=== PATIENT | male | born 1940 | race Caucasian/White ===

== ENCOUNTER 2023-12-27 11:13 | Emergency (ER) | payer MEDICARE, SELFPAY ==
[2023-12-27 11:15] VITALS: BP 127/65
[2023-12-27 12:11] VITALS: BP 124/69; BMI 23.3
--- NOTE | 2023-12-27 12:35 | ED.GENMED ---
History of Present Illness
<Jordana Oseguera PA-C - Last Filed: 12/29/23 14:38>
General
Chief Complaint: Back Pain
Source: patient
Exam Limitations: none
Time Seen by Provider: 12/27/23 12:04
Nursing documentation reviewed up to this point in time: agreed with
History of Present Illness
History of Present Illness:
Patient is an 83-year-old male presenting to the emergency department for evaluation of right hip pain. Patient states pain initially started on Sunday while he was moving large boxes as he does work in the [employer] industry. He states pain is
persistent over the past few days he came to the emergency department for evaluation. He describes the pain in his right hip with some radiation down his right leg. He did notice some weakness in his right leg. Today he felt slightly 'woozy 'and
became concerned. He is ambulating independently with some pain. Patient denies any chest pain, shortness of breath, bowel/bladder incontinence, saddle paresthesias, numbness in the legs. Patient denies any fever or chills.
Patient does follow with [facility].
Review of Systems
<Jordana Oseguera PA-C - Last Filed: 12/29/23 14:38>
Review of Systems
Allergies reviewed?: Yes
All Other Systems: ROS reviewed and negative except as documented in HPI and ROS
Phy Exam
<Jordana Oseguera PA-C - Last Filed: 12/29/23 14:38>
Physical Exam
Physical Exam:
Vitals: Mildly bradycardic, otherwise vital signs stable. Afebrile
General: Patient is well appearing, no acute distress. Nontoxic appearing
Skin: Warm and dry, no rashes or lesions
Head: Normocephalic, atraumatic
Eyes: Sclera nonicteric. EOMs intact. No nystagmus.
Throat: Protecting airway
Neck: Normal ROM, no cervical spine tenderness, no meningismus. Trachea midline
Cardiac: Regular rate and rhythm, no murmurs.
Pulm: Normal respiratory effort, no wheezes, rales, rhonchi heard on exam.
Abdomen: Abdomen soft. No abdominal tenderness.
Back: No midline spinal tenderness.
Extremities: Mild reproducible tenderness along right posterior iliac crest. Right lower extremity atraumatic and nontender with full range of motion without pain. No pain with right hip internal/external rotation. Great distal pulses of
bilateral lower extremities. Negative straight leg raise
Neuro: AAOx3. CN II-XII intact. No focal neurologic deficits. Strength 5/5 in bilateral upper and lower extremities. Sensation fully intact.
Psychiatric: Normal affect.
Course
<Jordana Oseguera PA-C - Last Filed: 12/29/23 14:38>
Orders/Labs/Results
Orders:
Orders
12/27/23 12:26
CR Hip - RT w/wo Pel 2-3 Vw* Urgent
Comment:
Reason For Exam: pain
Include a pelvis x-ray?: Yes
12/27/23 12:36
Lidocaine [Lidocaine 4% Patch] 1 patch TOPICAL NOW STA
Apply Lidocaine patch(s) to:: Right lower back
12/27/23 13:08
Electrocardiogram (*1) Urgent
Reason for Study: Vertigo / Dizzy
EKG- Treatment ONCE
12/27/23 13:31
Basic Metabolic Panel Urgent
Complete Blood Count/With Diff Urgent
Abnormal Lab Results
12/27/23
13:31
MPV 11.0 H fL
(7.4-10.4)
Lymphocytes % 19.2 L %
(20.5-51.1)
BUN 21 H mg/dl
(9-20)
12/27/23 13:31
12/27/23 13:31
Vital Signs
Initial and Last Documented VS:
Initial Vital Signs
Temp Pulse Resp BP Pulse Ox
97.5 F 57 22 127/65 99
12/27/23 11:15 12/27/23 11:15 12/27/23 11:15 12/27/23 11:15 12/27/23 11:15
Last Documented Vital Signs
Temp Pulse Resp BP Pulse Ox
97.5 F 57 18 117/65 98
12/27/23 11:15 12/27/23 17:06 12/27/23 17:06 12/27/23 17:06 12/27/23 17:06
<Killian Kenney MD - Last Filed: 12/27/23 13:09>
Orders/Labs/Results
Orders:
Orders
12/27/23 12:26
CR Hip - RT w/wo Pel 2-3 Vw* Urgent
Comment:
Reason For Exam: pain
Include a pelvis x-ray?: Yes
12/27/23 12:36
Lidocaine [Lidocaine 4% Patch] 1 patch TOPICAL NOW STA
Apply Lidocaine patch(s) to:: Right lower back
12/27/23 13:08
Electrocardiogram (*1) Urgent
Reason for Study: Vertigo / Dizzy
EKG- Treatment ONCE
12/27/23 13:31
Basic Metabolic Panel Urgent
Complete Blood Count/With Diff Urgent
Abnormal Lab Results
12/27/23
13:31
MPV 11.0 H fL
(7.4-10.4)
Lymphocytes % 19.2 L %
(20.5-51.1)
BUN 21 H mg/dl
(9-20)
12/27/23 13:31
12/27/23 13:31
Vital Signs
Initial and Last Documented VS:
Initial Vital Signs
Temp Pulse Resp BP Pulse Ox
97.5 F 57 22 127/65 99
12/27/23 11:15 12/27/23 11:15 12/27/23 11:15 12/27/23 11:15 12/27/23 11:15
Last Documented Vital Signs
Temp Pulse Resp BP Pulse Ox
97.5 F 57 18 117/65 98
12/27/23 11:15 12/27/23 17:06 12/27/23 17:06 12/27/23 17:06 12/27/23 17:06
<Jordana Oseguera PA-C - Last Filed: 12/29/23 14:38>
MDM/Problems Addressed
Differential Diagnosis Includes:
Not limited to: Muscle strain, sciatica, IT band syndrome, hip fracture, zoster
MDM/Problems Addressed:
83-year-old male with history as documented presenting with right hip/lower back discomfort following lifting heavy object at work. Pain persistent throughout this week. Patient with mild weakness in right leg and felt 'woozy' today prompting
visit to emergency department. No fevers, chills, numbness/tingling, saddle anesthesia, bowel/bladder incontinence. No urinary symptoms. Patient's vital signs are stable. Physical exam as above. Mild reproducible tenderness along right lateral
hip. No bony tenderness or overlying erythema, edema, or rash. Full range of motion in all joints of right lower extremity without pain. Negative straight leg raise. No focal neurologic deficits on exam. He has excellent strength in bilateral
upper and lower extremities. Patient perfusing well. Great distal pulses. Symptoms seem most consistent with musculoskeletal origin although given patient's 'woozy ' feeling will obtain basic labs, EKG. Will obtain CT abdomen/pelvis to ensure no
intra-abdominal pathology or obstructive uropathy.
Did apply lidocaine patch to patient's lower back/right hip. He reports significant improvement in discomfort following lidocaine patch. He is ambulating around room without any difficulty. States that he 'feels much better '. Labs were obtained
which show no significant abnormalities. EKG shows sinus rhythm with signs of LVH and a left bundle branch block. Did contact patient's sports media who he sees at [facility] to obtain prior EKG for comparison purposes. EKG remains relatively
unchanged. Patient has been waiting for CT scan for a while at this point. He is requesting discharge. Did discuss with patient purpose of CT to evaluate for other intra-abdominal/renal etiology of pain. Despite recommendation�patient be
discharged prior to CT scan given that he is feeling 'so much better 'after lidocaine patch. Patient aware of risks associated with not proceeding with CT and possibly missing more emergent diagnosis.
Patient will be discharged with close return precautions. He is following up with his primary care provider later this week. He will use lidocaine patches, Tylenol at home. Patient ambulated without any difficulty out of triage.
Chronic conditions affecting care:
Hyperlipidemia
Acute Exacerbation and/or Progression of Chronic Illness:
N/A
<Jordana Oseguera PA-C - Last Filed: 12/29/23 14:38>
*Radiology
Radiology exam reviewed: preliminary read by ED provider (No fracture or dislocation) and radiology read reviewed
*Pulse Oximetry
Patient hypoxic: no
*EKG
Interpreted by ED Provider?: Yes
EKG Intrepretation Date: 12/27/23
Interpretation: abnormal
Comparison EKG: no comparison EKG present
Heart Rate: 50
Rate: bradycardiac
Rhythm: sinus
Randle: normal axis
Interval: first degree heart block
QRS Pattern: left vent hypertrophy
Ischemia: non-specific ST changes
*Hat Finisher Interpretation
Rate: Hat Finisher- N/A
*Critical Care Note
Total Time (30-74mins, 75-104mins- exclusive of procedures): Not Applicable
ED Attending Note
<Jordana Oseguera PA-C - Last Filed: 12/29/23 14:38>
-
Portions of this chart may have been created with voice recognition software.� Occasional wrong word or��sound alike� substitutions may have occurred due to the inherent limitations of voice recognition software.
<Killian Kenney MD - Last Filed: 12/27/23 13:09>
ED Attending Note
Patient seen and examined by attending physician: Yes
I performed the substantive portion of visit, reviewed & personally made and approve the management plan that is documented in note by myself or LEXI.: Yes
ED Attending Note:
Patient complaining of days of discomfort pointing to the right flank across the iliac crest. No shearing pain no general abdominal pain some shooting pain down the leg. Complains of some weakness in the leg. No fever chills urinary symptoms etc.
On exam patient is nontoxic in no distress. Warm and dry. Perfusing well. Good distal pulses and color. No pain with straight leg raising. Good lower extremity strength. Good plantar dorsiflexion at the foot. Able to ambulate without any
apparent discomfort. No CVA tenderness. No rash. Most suspicious of a musculoskeletal issue along his iliac crest however with this woozy feeling he is having an vague lateral abdominal discomfort we will get labs CT scan and EKG.
Discharge Plan
Departure
Patient Disposition: Home (Routine Discharge)
Date of Disposition: 12/27/23
Time of Disposition: 16:54
Patient with high blood pressure during this ER visit?: No
Condition: Good
Covid-19: Not Applicable
Discharge Problem:
Acute right hip pain
Instructions: Hip Pain ED
Referrals:
Deepak Cazares, [Family Provider] - Follow up in 5-7 days
Activity Restrictions/Additional Instructions:
RETURN TO THE EMERGENCY DEPARTMENT WITH ANY FEVERS, CHILLS, CHEST PAIN, SHORTNESS OF BREATH, WEAKNESS/NUMBNESS IN LOWER LEGS, BOWEL/BLADDER INCONTINENCE, WORSENING IN CURRENT SYMPTOMS, OR ANY OTHER CONCERNS
-As discussed�you should take Tylenol at home for any discomfort. You can use lidocaine patches, as well. Take it easy over the next few days.
-As discussed your EKG showed some changes today. We did not have a copy to compare to. I did provide you a card that you should review with your sports media. If you develop any symptoms including chest pain, shortness of breath,
dizziness/lightheadedness, back pain please return to the emergency department immediately. It is very important that you follow-up with your sports media promptly for further evaluation.
-You should follow-up your primary care provider for further evaluation/management to ensure that symptoms are improving. You may require physical therapy or additional imaging.
Monitor your symptoms closely and return to the emergency department with any acute worsening/new symptom
Interventions
Interventions:
*Risk Screen - Suicide Last Done: 12/27/23 11:15
*General Assessment Last Done: 12/27/23 11:15
*Neglect/Abuse Screening Last Done: 12/27/23 11:15
ED- Fall Risk Assessment Last Done: 12/27/23 12:15
*ED COVID-19 Vaccine History Last Done: 12/27/23 12:15
*Nursing Disposition Last Done: 12/27/23 17:06
ED-Musculoskeletal Assessment Last Done: 12/27/23 12:12
Discharge Date and Time
Discharge Date/Time: 12/27/23 17:00
Print Language: ETHIOPIAN
[2023-12-27 13:29] VITALS: BP 124/63
[2023-12-27] MEDS: LIDOCAINE 4% PATCH 1 PATCH TOPICAL (13:41)
[2023-12-27 13:43] LABS: % Basophils 0.8 % (0-2); % Eosinophils 3.5 % (0-6); % Immature Granulocytes 0.2 % (0-0.5); % Lymphocytes 19.2 % (20.5-51.1); % Neutrophils 68.3 % (42.2-75.2); Absolute Basophils 0.1 10^3/uL (0-0.2); Absolute Eosinophils 0.2 10^3/uL (0-0.7); Absolute Lymphocytes 1.2 10^3/uL (1.2-3.4); Absolute Monocytes 0.5 10^3/uL (0.1-0.6); Absolute Neutrophils 4.4 10^3/uL (1.4-6.5); Hematocrit 43.4 % (39.0-52.0); Mean Corp Hgb Conc. 34.6 g/dL (33.0-37.0); Mean Corpuscular Hgb 30.9 pg (27.0-31.0); Mean Corpuscular Volume 89.5 fL (80.0-94.0); Nucleated Red Blood Cells % 0 % (-); Platelet Count 177 10^3/uL (130-400); Red Blood Cell Count 4.85 10^6/uL (4.70-6.10); Red Cell Dist. Width 13.4 % (11.5-14.5); White Blood Cell Count 6.4 10^3/uL (4.8-10.8)
[2023-12-27 13:58] LABS: Blood Urea Nitrogen 21 mg/dl (9-20); Calcium 9.2 mg/dl (8.4-10.2); Carbon Dioxide 27 mmol/L (22-30); Chloride 105 mmol/L (98-107); Estimated Creatinine Clearance 52 ml/min; Glucose 93 mg/dl (70-99); Potassium 4.6 mmol/L (3.5-5.1); Sodium 136 mmol/L (135-145); eGFR > 60.00
[2023-12-27 15:49] VITALS: BP 126/63
--- NOTE | 2023-12-27 17:04 | EDRN ---
Discharge instructions given to patient by Jordana Oseguera PA-C. Patient ambulated with steady gait to the [facility].
[2023-12-27 17:06] VITALS: BP 117/65
== END 2023-12-27 17:00 | disposition home or self-care (01) ==
LOC: EMR 11:13
PROVIDERS: Physician Assistant; EMERGENCY PHYSICIAN Emergency Medicine; FAMILY PHYSICIAN Internal Medicine
DX: M25.551 Pain in right hip (principal); E78.00 Pure hypercholesterolemia, unspecified
CPT/HCPCS: 99283; 73502; 80048; 85025; 93005

== ENCOUNTER 2024-03-05 13:49 | Emergency (ER) | payer MEDICARE, SELFPAY ==
[2024-03-05 13:52] VITALS: BP 151/79
[2024-03-05 14:12] LABS: % Eosinophils 3.7 % (0-6); % Immature Granulocytes 0.3 % (0-0.5); % Lymphocytes 27.7 % (20.5-51.1); % Monocytes 8.6 % (1.7-9.3); % Neutrophils 58.7 % (42.2-75.2); Absolute Basophils 0.1 10^3/uL (0-0.2); Absolute Eosinophils 0.2 10^3/uL (0-0.7); Absolute Lymphocytes 1.6 10^3/uL (1.2-3.4); Absolute Monocytes 0.5 10^3/uL (0.1-0.6); Absolute Neutrophils 3.5 10^3/uL (1.4-6.5); Hematocrit 42.9 % (39.0-52.0); Hemoglobin 14.9 g/dL (13.0-18.0); Mean Corp Hgb Conc. 34.7 g/dL (33.0-37.0); Mean Corpuscular Hgb 31.8 pg (27.0-31.0); Mean Corpuscular Volume 91.5 fL (80.0-94.0); Nucleated Red Blood Cells % 0 % (-); Platelet Count 205 10^3/uL (130-400); Red Blood Cell Count 4.69 10^6/uL (4.70-6.10); Red Cell Dist. Width 13.2 % (11.5-14.5); White Blood Cell Count 5.9 10^3/uL (4.8-10.8)
[2024-03-05 14:25] LABS: ALT (SGPT) 40 U/L (0-50); AST (SGOT) 37 U/L (17-59); Albumin 4.3 g/dl (3.5-5.0); Alkaline Phosphatase 75 U/L (38-126); Blood Urea Nitrogen 18 mg/dl (9-20); Calcium 9.5 mg/dl (8.4-10.2); Carbon Dioxide 27 mmol/L (22-30); Chloride 101 mmol/L (98-107); Glucose 93 mg/dl (70-99); Potassium 4.4 mmol/L (3.5-5.1); Sodium 140 mmol/L (135-145); Total Bilirubin 1.5 mg/dl (0.2-1.3); Total Protein 6.8 g/dl (6.3-8.2); eGFR > 60.00
[2024-03-05 14:27] LABS: Urine Albumin 2+ (Neg - Trace); Urine Bilirubin Negative (Negative); Urine Character Very Cloudy (Clear); Urine Color Red; Urine Glucose Negative (Negative); Urine Ketone Trace (Negative); Urine Leukocyte Trace (Negative); Urine Nitrite Negative (Negative); Urine Occult Blood 4+ (Negative); Urine Urobilinogen Negative (Neg - 1+)
[2024-03-05 14:50] LABS: Urine Squamous Cell 0-2 /LPF (Few)
[2024-03-05 14:51] LABS: Urine Red Blood Cell >100 /HPF (0-2); Urine White Cell 0-2 /HPF (0-5)
[2024-03-05 18:48] VITALS: BP 154/75
--- NOTE | 2024-03-05 23:33 | ED.GENMED ---
History of Present Illness
General
Chief Complaint: Urinary Symptoms
Source: patient
Exam Limitations: none
Time Seen by Provider: 03/05/24 16:18
Nursing documentation reviewed up to this point in time: agreed with
History of Present Illness
History of Present Illness:
Patient to ED with complaint of hematuria. Symptoms started approx 1 week ago. Denies fever/chills, frequency, urgency,, pain. No difficulty with urination. Brought self to ED for eval.
Past History
Past History
ED Past Medical History: None
Phy Exam
General Physical Exam
General Presentation: well appearing and no apparent distress
General age: appears stated age
General Skin: warm and dry
General Habitus: normal
Gastrointestinal Exam
Gastrointestinal Exam: normal bowel sounds, non tender, soft, no organomegaly, non distended and no cva tenderness
Genitourinary Exam Male
Exam Male: circumcised, no discharge, normal external genitalia, normal testicular exam, no evidence of trauma and no testicular swelling
Musculoskeletal Exam
Musculoskeletal Exam: full ROM
Skin Exam
Skin Exam: normal color, warm/dry and no rash
Psychiatric Exam
Psychiatric Exam: normal mood/affect
Course
Orders/Labs/Results
Orders:
Orders
03/05/24 14:00
CMP [Comprehensive Metabolic Panel] Urgent
Complete Blood Count/With Diff Urgent
Urinalysis Reflex To Culture Urgent
Date Specimen was Collected: 03/05/24
Time Specimen was Collected: 13:55
Urine Microscopic Reflex Cult Urgent
03/05/24 16:24
Kidney & Bladder US [US Renal With Bladder] Urgent
Comment:
Reason For Exam: Hematuria
Abnormal Lab Results
03/05/24
14:00
RBC 4.69 L 10^6/uL
(4.70-6.10)
MCH 31.8 H pg
(27.0-31.0)
Total Bilirubin 1.5 H mg/dl
(0.2-1.3)
Urine Ketones Trace A
(Negative)
Ur Occult Blood Reflex 4+ A
(Negative)
Leukocyte Esterase Rfl Trace A
(Negative)
Urine RBC >100 A /HPF
(0-2)
Urine Albumin (Reflex) 2+ A
(Neg - Trace)
03/05/24 14:00
03/05/24 14:00
Vital Signs
Initial and Last Documented VS:
Initial Vital Signs
Temp Pulse Resp BP Pulse Ox
98.0 F 71 16 151/79 99
03/05/24 13:52 03/05/24 13:52 03/05/24 13:52 03/05/24 13:52 03/05/24 13:52
Last Documented Vital Signs
Temp Pulse Resp BP Pulse Ox
98.0 F 58 18 154/75 98
03/05/24 13:52 03/05/24 18:48 03/05/24 18:48 03/05/24 18:48 03/05/24 18:48
MDM/Problems Addressed
Differential Diagnosis Includes:
Patient to ED wt complaint of hematuria. States this has been intermittent for the past week. No history fever/chills, abdominal or back pain. No urgency or dysuria. Labs reviewed, US reviewed. No findings to explain his symptoms. Will
discharge home, recommend followup with urology. States he will call in AM to schedule appt. Given instructions on s/s to return to ED and he is agreeable to plan.
*Radiology
Radiology exam reviewed: radiology read reviewed
*Pulse Oximetry
Patient hypoxic: no
*Critical Care Note
Total Time (30-74mins, 75-104mins- exclusive of procedures): Not Applicable
ED Attending Note
-
Portions of this chart may have been created with voice recognition software.� Occasional wrong word or��sound alike� substitutions may have occurred due to the inherent limitations of voice recognition software.
Discharge Plan
Departure
Patient Disposition: Home (Routine Discharge)
Date of Disposition: 03/05/24
Time of Disposition: 18:38
Patient with high blood pressure during this ER visit?: No
Condition: Good
Covid-19: Not Applicable
Discharge Problem:
Hematuria
Instructions: Blood in the Urine (Hematuria), Adult (DC)
Referrals:
Deepak Cazares DO [Family Provider] -
Paul Arenas MD [Active] - Call in 1-3 days for appt
Activity Restrictions/Additional Instructions:
Return to the emergency department immediately for fever/chills, pain with urination, difficultly urinating, or for any further concerns.
Interventions
Interventions:
*Risk Screen - Suicide Last Done: 03/05/24 13:52
*General Assessment Last Done: 03/05/24 13:52
*Neglect/Abuse Screening Last Done: 03/05/24 13:52
*ED COVID-19 Vaccine History Last Done: 03/05/24 13:52
*Nursing Disposition Last Done: 03/05/24 18:48
ED-Male Genitourinary Assessment Last Done: 03/05/24 16:18
Discharge Date and Time
Discharge Date/Time: 03/05/24 18:53
Print Language: TURKISH
== END 2024-03-05 18:53 | disposition home or self-care (01) ==
LOC: EMR 13:49
PROVIDERS: EMERGENCY PHYSICIAN Emergency Medicine; FAMILY PHYSICIAN Internal Medicine
DX: R31.9 Hematuria, unspecified (principal)
CPT/HCPCS: 99284; 76770; 80053; 81003; 81015; 85025